=== PATIENT | male | born 1950 | race Caucasian/White ===

== ENCOUNTER 2020-01-31 13:55 | Emergency (ER) | payer MEDICARE | END 2020-01-31 15:43 | disposition home or self-care (01) | LOC: EDH 13:55 | DX: H53.8 Other visual disturbances (principal); E11.9 Type 2 diabetes mellitus without complications; I10 Essential (primary) hypertension; Z72.0 Tobacco use; Z88.0 Allergy status to penicillin | CPT/HCPCS: 99281 ==

== ENCOUNTER 2020-10-31 08:07 | Emergency (ER) | payer MEDICARE ==
[2020-10-31 08:38] LABS: BASOPHILS % (AUTO) 0.4 % (0.0-5.0); HEMATOCRIT 46.4 % (42-54); LYMPHOCYTES % (AUTO) 6.3 % (21.0-51.0); MEAN CORPUSCULAR HEMOGLOBIN 29.3 pg (27.0-33.0); MEAN CORPUSCULAR HGB CONC 32.8 g/dL (32.0-36.0); MEAN CORPUSCULAR VOLUME 89.6 fL (79-99); MONOCYTES % (AUTO) 6.1 % (3.0-13.0); NEUTROPHILS % (AUTO) 85.5 % (40.0-77.0); PLATELET COUNT (AUTO) 210 K/uL (130-400); RED BLOOD CELL COUNT(AUTO) 5.18 MIL/uL (4.50-6.20); RED CELL DISTRIBUTION WIDTH 13.3 % (11.0-15.5); WHITE BLOOD COUNT (AUTO) 13.4 K/uL (4.8-10.8)
[2020-10-31 08:58] LABS: ALBUMIN 2.9 g/dL (3.5-5.0); BILIRUBIN,TOTAL 0.6 mg/dL (0.2-1.0); CREATININE 1.1 mg/dL (0.5-1.5); POTASSIUM 4.9 mmol/L (3.5-5.1); TOTAL PROTEIN, SERUM 7.1 g/dL (6.0-8.3)
[2020-10-31 09:08] LABS: CRP QUANTITATIVE 211.1 mg/L (0.00-9.0)
[2020-10-31] MEDS ORDERED: CLINDAMYCIN 600 MG/D5% WATER 50 ML IV ONE (09:27)
== END 2020-10-31 10:42 | disposition home or self-care (01) ==
LOC: EDH 08:07
DX: L03.116 Cellulitis of left lower limb (principal); E11.9 Type 2 diabetes mellitus without complications; I10 Essential (primary) hypertension; Z88.0 Allergy status to penicillin; Z72.0 Tobacco use; Z98.890 Other specified postprocedural states
CPT/HCPCS: 36415; 80053; 83605; 84145; 85025; 85378; 86140; 93971; 96374; 99284; J3490

== ENCOUNTER 2022-03-12 11:03 | Emergency (ER) | payer MEDICARE ==
[~2022-03-12] VITALS: Ht 165.1 cm; Wt 138.5 kg
[~2022-03-12 11:03] MED LIST: CIPR-278 PO; METR-172 PO
[2022-03-12 11:31] VITALS: BP 150/96
== END 2022-03-12 13:04 | disposition home or self-care (01) ==
LOC: EDH 11:03
DX: T83.012A Breakdown (mechanical) of nephrostomy catheter, initial encounter (principal); N20.1 Calculus of ureter; E11.9 Type 2 diabetes mellitus without complications

== ENCOUNTER 2022-03-16 15:29 | Emergency (ER) | payer MEDICARE ==
[~2022-03-16] VITALS: Ht 165.1 cm; Wt 136.1 kg
[2022-03-16 17:15] VITALS: BP 120/89
== END 2022-03-16 18:10 | disposition home or self-care (01) ==
LOC: EDH 15:29
DX: T83.022A Displacement of nephrostomy catheter, initial encounter (principal); N99.522 Malfunction of incontinent external stoma of urinary tract; E11.9 Type 2 diabetes mellitus without complications; Z87.442 Personal history of urinary calculi; Z88.0 Allergy status to penicillin; Y83.8 Other surgical procedures as the cause of abnormal reaction of the patient, or of later complication, without mention of misadventure at the time of the procedure; Y92.89 Other specified places as the place of occurrence of the external cause
CPT/HCPCS: 99281